=== PATIENT | male | born 1955 | race Caucasian/White ===

== ENCOUNTER 2016-12-31 09:01 | Inpatient (IN) | payer MEDICARE, MEDICAID ==
[~2016-12-31 09:01] MED LIST: AMBIEN10 M1 PO; AMLODIPINE BESY10 M1 PO; ASPIR-LOW81 M1 PO; ATIVAN0.5 M1 PO; BISCOLAX10 MG PR; CALCIUM ACETAT667 M2 PO; CLONIDINE HCL0.3 M1 PO; CLONIDINE1 EAC3 TD; CLOPIDOGREL75 M1 PO; COLACE100 M1 PO; CYMBALTA20 M1 PO; FINASTERIDE5 M2 PO; FLOMAX0.4 M1 PO; HYDRALAZINE HCL50 M1 PO; LAMOTRIGINE25 M3 PO; LASIX40 M1 PO; LEVEMIR100 UNITS/ SC; LIDOPATCH1 EAC1 TP; LISINOPRIL40 M1 PO; METAXALONE800 M1 PO; METOPROLOL TART25 M1 PO; MIRALAX17 G2 PO; MULTIVITAMIN; NEURONTIN300 M1 PO; NEURONTIN600 M1 PO; NORCO 5-325 TA1 EACH PO; NOVOLIN 70100 UNITS/ SC; NOVOLOG FL100 UNIT/2 SC; OMEPRAZOLE40 M2 PO; OXYCODONE HCL5 M1 PO; PROCEL PO; RENVELA800 M1 PO; RISPERIDONE0.5 M1 PO; SENNALAX S PO; SENSIPAR30 M1 PO; TRAZODONE HCL150 M1 PO; ULTRAM50 M1 PO; VENLAFAXINE PO; ZOFRAN ODT4 MG PO; ZOFRAN4 M2 PO
[2016-12-31 12:21] LABS: BASO % 0.3 % (0-2); EOS % 1.3 % (0-7); EOSINOPHIL ABSOLUTE COUNT 0.1 tho/cmm (0.0-0.7); HCT-HEMATOCRIT 28.1 % (36.0-53.5); HGB-HEMOGLOBIN 9.4 gm/dl (13.5-17.0); IMMATURE GRANULOCYTES ABSOLUTE 0.05 tho/cmm (0-0.03); IMMATURE GRANULOCYTES PERCENT 0.5 % (0-0.3); LYMPH % 7.4 % (20-45); LYMPH ABSOLUTE COUNT 0.8 tho/cmm (0.8-4.5); MCH (MEAN CORPUSCULAR HGB) 32.1 pg (28.0-32.0); MCHC MEAN CORPUSCULAR HGB CONC 33.5 % (32.0-36.0); MCV (MEAN CELL VOLUME) 95.9 fl (82.0-96.0); MEAN PLATELET VOLUME 9.4 cmc (9.4-12.4); MONOCYTE ABSOLUTE COUNT 0.9 tho/cmm (0.0-1.2); NEUTROPHIL ABSOLUTE COUNT 9.1 tho/cmm (1.6-8.0); NEUTROPHIL-AUTOMATED 9.1 tho/cmm (1.6-8.0); NEUTROPHILS % 82.5 % (40-80); PLATELET COUNT 276 tho/cmm (150-450); RED BLOOD COUNT 2.93 mil/cmm (4.40-5.70); RED CELL DISTRIBUTION WIDTH 16.2 % (12.4-16.4)
[2016-12-31 12:26] LABS: INR 1.3 INR (0.9-1.1); PROTHROMBIN TIME 15.1 SECONDS (9.0-13.6)
[2016-12-31 12:34] LABS: ANION GAP 19 mmol/L (0-20); BLOOD UREA NITROGEN 63 mg/dl (6-24); CARBON DIOXIDE-VENOUS 24 mmol/L (22-32); CHLORIDE 94 mmol/l (96-110); CREATININE 6.85 mg/dl (0.60-1.30); GLUCOSE 341 mg/dL (70-110); SODIUM 133 mmol/L (135-145); eGFR VALUE FOR BLACK 9 mL/Min
[2016-12-31 14:08] LABS: ALB/GLOB RATIO 0.4 (0.8-2.0); ALBUMIN 2.6 g/dl (3.5-5.0); ALKALINE PHOSPHATASE 205 U/L (33-138); ALT/SGPT 44 U/L (12-78); ANION GAP 19 mmol/L (0-20); AST/SGOT 24 U/L (10-40); BILIRUBIN,TOTAL 0.5 mg/dl (0.0-1.5); BLOOD UREA NITROGEN 64 mg/dl (6-24); CALCIUM 8.7 mg/dl (8.5-10.5); CARBON DIOXIDE-VENOUS 24 mmol/L (22-32); CHLORIDE 94 mmol/l (96-110); CREATININE 6.86 mg/dl (0.60-1.30); GLUCOSE 353 mg/dL (70-110); SODIUM 133 mmol/L (135-145); eGFR VALUE FOR BLACK 9 mL/Min
[2017-01-01 07:57] LABS: BASO % 0.2 % (0-2); EOS % 2.2 % (0-7); EOSINOPHIL ABSOLUTE COUNT 0.2 tho/cmm (0.0-0.7); HCT-HEMATOCRIT 26.4 % (36.0-53.5); HGB-HEMOGLOBIN 8.8 gm/dl (13.5-17.0); IMMATURE GRANULOCYTES ABSOLUTE 0.02 tho/cmm (0-0.03); IMMATURE GRANULOCYTES PERCENT 0.2 % (0-0.3); LYMPH % 8.9 % (20-45); LYMPH ABSOLUTE COUNT 0.9 tho/cmm (0.8-4.5); MCH (MEAN CORPUSCULAR HGB) 31.7 pg (28.0-32.0); MCHC MEAN CORPUSCULAR HGB CONC 33.3 % (32.0-36.0); MEAN PLATELET VOLUME 9.3 cmc (9.4-12.4); MONO % 7.8 % (0-12); MONOCYTE ABSOLUTE COUNT 0.7 tho/cmm (0.0-1.2); NEUTROPHIL ABSOLUTE COUNT 7.7 tho/cmm (1.6-8.0); NEUTROPHIL-AUTOMATED 7.7 tho/cmm (1.6-8.0); NEUTROPHILS % 80.7 % (40-80); PLATELET COUNT 275 tho/cmm (150-450); RED BLOOD COUNT 2.78 mil/cmm (4.40-5.70); RED CELL DISTRIBUTION WIDTH 15.6 % (12.4-16.4); WHITE BLOOD COUNT 9.5 tho/cmm (4.0-10.0)
[2017-01-01 08:09] LABS: ALBUMIN 2.3 g/dl (3.5-5.0); ANION GAP 21 mmol/L (0-20); BLOOD UREA NITROGEN 75 mg/dl (6-24); CALCIUM 8.8 mg/dl (8.5-10.5); CARBON DIOXIDE-VENOUS 22 mmol/L (22-32); CHLORIDE 95 mmol/l (96-110); CREATININE 8.39 mg/dl (0.60-1.30); GLUCOSE 206 mg/dL (70-110); PHOSPHOROUS 4.5 mg/dl (2.5-4.9); POTASSIUM 3.7 mmol/L (3.7-5.1); SODIUM 134 mmol/L (135-145); eGFR VALUE FOR BLACK 7 mL/Min
[2017-01-01 15:45] LABS: C-REACTIVE PROTEIN 24.5 mg/dl (0-0.9)
[2017-01-01 16:04] LABS: PROCALCITONIN 1.86 ng/ml (0.05-0.09)
[2017-01-02 07:47] LABS: BASO % 0.4 % (0-2); EOS % 2.7 % (0-7); EOSINOPHIL ABSOLUTE COUNT 0.2 tho/cmm (0.0-0.7); HCT-HEMATOCRIT 28.4 % (36.0-53.5); IMMATURE GRANULOCYTES ABSOLUTE 0.04 tho/cmm (0-0.03); IMMATURE GRANULOCYTES PERCENT 0.5 % (0-0.3); LYMPH % 12.2 % (20-45); MCH (MEAN CORPUSCULAR HGB) 30.6 pg (28.0-32.0); MCHC MEAN CORPUSCULAR HGB CONC 31.7 % (32.0-36.0); MCV (MEAN CELL VOLUME) 96.6 fl (82.0-96.0); MEAN PLATELET VOLUME 9.2 cmc (9.4-12.4); MONO % 9.3 % (0-12); MONOCYTE ABSOLUTE COUNT 0.8 tho/cmm (0.0-1.2); NEUTROPHIL ABSOLUTE COUNT 6.1 tho/cmm (1.6-8.0); NEUTROPHIL-AUTOMATED 6.1 tho/cmm (1.6-8.0); NEUTROPHILS % 74.9 % (40-80); PLATELET COUNT 319 tho/cmm (150-450); RED BLOOD COUNT 2.94 mil/cmm (4.40-5.70); RED CELL DISTRIBUTION WIDTH 16.1 % (12.4-16.4); WHITE BLOOD COUNT 8.2 tho/cmm (4.0-10.0)
[2017-01-02 08:04] LABS: ALBUMIN 2.4 g/dl (3.5-5.0); ANION GAP 13 mmol/L (0-20); BLOOD UREA NITROGEN 44 mg/dl (6-24); CALCIUM 8.8 mg/dl (8.5-10.5); CARBON DIOXIDE-VENOUS 28 mmol/L (22-32); CHLORIDE 100 mmol/l (96-110); GLUCOSE 130 mg/dL (70-110); PHOSPHOROUS 3.4 mg/dl (2.5-4.9); POTASSIUM 4.1 mmol/L (3.7-5.1); SODIUM 137 mmol/L (135-145)
[2017-01-02 08:07] LABS: CREATININE 5.74 mg/dl (0.60-1.30); eGFR VALUE FOR BLACK 11 mL/Min
[2017-01-02 08:24] LABS: PROCALCITONIN 2.98 ng/ml (0.05-0.09)
[2017-01-02] MEDS ORDERED: NORCO 10-325 T1 EACH PO (14:05)
[2017-01-03 05:59] LABS: BASO % 0.3 % (0-2); EOS % 2.3 % (0-7); EOSINOPHIL ABSOLUTE COUNT 0.2 tho/cmm (0.0-0.7); HCT-HEMATOCRIT 29.3 % (36.0-53.5); HGB-HEMOGLOBIN 9.4 gm/dl (13.5-17.0); IMMATURE GRANULOCYTES ABSOLUTE 0.03 tho/cmm (0-0.03); IMMATURE GRANULOCYTES PERCENT 0.3 % (0-0.3); LYMPH % 8.5 % (20-45); LYMPH ABSOLUTE COUNT 0.8 tho/cmm (0.8-4.5); MCH (MEAN CORPUSCULAR HGB) 31.2 pg (28.0-32.0); MCHC MEAN CORPUSCULAR HGB CONC 32.1 % (32.0-36.0); MCV (MEAN CELL VOLUME) 97.3 fl (82.0-96.0); MEAN PLATELET VOLUME 8.9 cmc (9.4-12.4); MONO % 9.1 % (0-12); MONOCYTE ABSOLUTE COUNT 0.8 tho/cmm (0.0-1.2); NEUTROPHIL ABSOLUTE COUNT 7.3 tho/cmm (1.6-8.0); NEUTROPHIL-AUTOMATED 7.3 tho/cmm (1.6-8.0); NEUTROPHILS % 79.5 % (40-80); PLATELET COUNT 338 tho/cmm (150-450); RED BLOOD COUNT 3.01 mil/cmm (4.40-5.70); RED CELL DISTRIBUTION WIDTH 16.4 % (12.4-16.4); WHITE BLOOD COUNT 9.2 tho/cmm (4.0-10.0)
[2017-01-03 06:29] LABS: ALBUMIN 2.4 g/dl (3.5-5.0); ANION GAP 17 mmol/L (0-20); BLOOD UREA NITROGEN 56 mg/dl (6-24); CARBON DIOXIDE-VENOUS 25 mmol/L (22-32); CHLORIDE 98 mmol/l (96-110); GLUCOSE 84 mg/dL (70-110); PHOSPHOROUS 4.5 mg/dl (2.5-4.9); POTASSIUM 4.3 mmol/L (3.7-5.1); SODIUM 136 mmol/L (135-145)
[2017-01-03 06:36] LABS: C-REACTIVE PROTEIN 18.8 mg/dl (0-0.9); CREATININE 7.54 mg/dl (0.60-1.30); eGFR VALUE FOR BLACK 8 mL/Min
[2017-01-03 06:56] LABS: PROCALCITONIN 2.39 ng/ml (0.05-0.09)
[2017-01-04 05:59] LABS: BASO % 0.4 % (0-2); EOS % 1.6 % (0-7); EOSINOPHIL ABSOLUTE COUNT 0.2 tho/cmm (0.0-0.7); HCT-HEMATOCRIT 28.5 % (36.0-53.5); HGB-HEMOGLOBIN 9.3 gm/dl (13.5-17.0); IMMATURE GRANULOCYTES ABSOLUTE 0.05 tho/cmm (0-0.03); IMMATURE GRANULOCYTES PERCENT 0.5 % (0-0.3); LYMPH % 7.3 % (20-45); LYMPH ABSOLUTE COUNT 0.8 tho/cmm (0.8-4.5); MCH (MEAN CORPUSCULAR HGB) 31.7 pg (28.0-32.0); MCHC MEAN CORPUSCULAR HGB CONC 32.6 % (32.0-36.0); MCV (MEAN CELL VOLUME) 97.3 fl (82.0-96.0); MONO % 7.6 % (0-12); MONOCYTE ABSOLUTE COUNT 0.8 tho/cmm (0.0-1.2); NEUTROPHIL ABSOLUTE COUNT 8.8 tho/cmm (1.6-8.0); NEUTROPHIL-AUTOMATED 8.8 tho/cmm (1.6-8.0); NEUTROPHILS % 82.6 % (40-80); PLATELET COUNT 355 tho/cmm (150-450); RED BLOOD COUNT 2.93 mil/cmm (4.40-5.70); RED CELL DISTRIBUTION WIDTH 16.1 % (12.4-16.4); WHITE BLOOD COUNT 10.6 tho/cmm (4.0-10.0)
[2017-01-04 06:58] LABS: ALBUMIN 2.3 g/dl (3.5-5.0); ANION GAP 19 mmol/L (0-20); BLOOD UREA NITROGEN 72 mg/dl (6-24); CALCIUM 8.7 mg/dl (8.5-10.5); CARBON DIOXIDE-VENOUS 25 mmol/L (22-32); CHLORIDE 96 mmol/l (96-110); CREATININE 9.32 mg/dl (0.60-1.30); GLUCOSE 112 mg/dL (70-110); SODIUM 135 mmol/L (135-145); eGFR VALUE FOR BLACK 6 mL/Min
[2017-01-04 07:08] LABS: C-REACTIVE PROTEIN 21.9 mg/dl (0-0.9)
[2017-01-05 05:10] LABS: BASO % 0.3 % (0-2); EOS % 1.9 % (0-7); EOSINOPHIL ABSOLUTE COUNT 0.2 tho/cmm (0.0-0.7); HCT-HEMATOCRIT 29.5 % (36.0-53.5); HGB-HEMOGLOBIN 9.2 gm/dl (13.5-17.0); IMMATURE GRANULOCYTES ABSOLUTE 0.05 tho/cmm (0-0.03); IMMATURE GRANULOCYTES PERCENT 0.6 % (0-0.3); LYMPH % 11.1 % (20-45); MCH (MEAN CORPUSCULAR HGB) 30.9 pg (28.0-32.0); MCHC MEAN CORPUSCULAR HGB CONC 31.2 % (32.0-36.0); MEAN PLATELET VOLUME 9.2 cmc (9.4-12.4); MONO % 8.4 % (0-12); MONOCYTE ABSOLUTE COUNT 0.8 tho/cmm (0.0-1.2); NEUTROPHIL ABSOLUTE COUNT 7.1 tho/cmm (1.6-8.0); NEUTROPHIL-AUTOMATED 7.1 tho/cmm (1.6-8.0); NEUTROPHILS % 77.7 % (40-80); PLATELET COUNT 336 tho/cmm (150-450); RED BLOOD COUNT 2.98 mil/cmm (4.40-5.70); RED CELL DISTRIBUTION WIDTH 16.2 % (12.4-16.4); WHITE BLOOD COUNT 9.1 tho/cmm (4.0-10.0)
[2017-01-05 05:40] LABS: C-REACTIVE PROTEIN 20.8 mg/dl (0-0.9)
[2017-01-06 05:54] LABS: BASO % 0.6 % (0-2); BASO ABSOLUTE COUNT 0.1 tho/cmm (0.0-0.2); EOS % 2.4 % (0-7); EOSINOPHIL ABSOLUTE COUNT 0.2 tho/cmm (0.0-0.7); HCT-HEMATOCRIT 26.8 % (36.0-53.5); HGB-HEMOGLOBIN 8.5 gm/dl (13.5-17.0); IMMATURE GRANULOCYTES ABSOLUTE 0.05 tho/cmm (0-0.03); IMMATURE GRANULOCYTES PERCENT 0.5 % (0-0.3); LYMPH % 11.3 % (20-45); LYMPH ABSOLUTE COUNT 1.1 tho/cmm (0.8-4.5); MCHC MEAN CORPUSCULAR HGB CONC 31.7 % (32.0-36.0); MCV (MEAN CELL VOLUME) 97.8 fl (82.0-96.0); MONOCYTE ABSOLUTE COUNT 0.9 tho/cmm (0.0-1.2); NEUTROPHIL ABSOLUTE COUNT 7.1 tho/cmm (1.6-8.0); NEUTROPHIL-AUTOMATED 7.1 tho/cmm (1.6-8.0); NEUTROPHILS % 75.2 % (40-80); PLATELET COUNT 317 tho/cmm (150-450); RED BLOOD COUNT 2.74 mil/cmm (4.40-5.70); RED CELL DISTRIBUTION WIDTH 16.2 % (12.4-16.4); WHITE BLOOD COUNT 9.4 tho/cmm (4.0-10.0)
[2017-01-06 06:08] LABS: ALBUMIN 2.3 g/dl (3.5-5.0); ANION GAP 17 mmol/L (0-20); BLOOD UREA NITROGEN 61 mg/dl (6-24); CALCIUM 8.5 mg/dl (8.5-10.5); CARBON DIOXIDE-VENOUS 25 mmol/L (22-32); CHLORIDE 97 mmol/l (96-110); CREATININE 8.42 mg/dl (0.60-1.30); GLUCOSE 85 mg/dL (70-110); PHOSPHOROUS 6.2 mg/dl (2.5-4.9); SODIUM 134 mmol/L (135-145); eGFR VALUE FOR BLACK 7 mL/Min
[2017-01-06 06:20] LABS: C-REACTIVE PROTEIN 21.4 mg/dl (0-0.9)
[2017-01-07 05:42] LABS: BASO % 0.5 % (0-2); EOS % 1.9 % (0-7); EOSINOPHIL ABSOLUTE COUNT 0.2 tho/cmm (0.0-0.7); HCT-HEMATOCRIT 26.9 % (36.0-53.5); HGB-HEMOGLOBIN 8.6 gm/dl (13.5-17.0); IMMATURE GRANULOCYTES ABSOLUTE 0.04 tho/cmm (0-0.03); IMMATURE GRANULOCYTES PERCENT 0.5 % (0-0.3); LYMPH % 10.6 % (20-45); LYMPH ABSOLUTE COUNT 0.9 tho/cmm (0.8-4.5); MCH (MEAN CORPUSCULAR HGB) 31.4 pg (28.0-32.0); MCV (MEAN CELL VOLUME) 98.2 fl (82.0-96.0); MEAN PLATELET VOLUME 8.8 cmc (9.4-12.4); NEUTROPHIL ABSOLUTE COUNT 6.4 tho/cmm (1.6-8.0); NEUTROPHIL-AUTOMATED 6.4 tho/cmm (1.6-8.0); NEUTROPHILS % 74.5 % (40-80); PLATELET COUNT 305 tho/cmm (150-450); RED BLOOD COUNT 2.74 mil/cmm (4.40-5.70); WHITE BLOOD COUNT 8.5 tho/cmm (4.0-10.0)
[2017-01-07 06:26] LABS: PROCALCITONIN 2.64 ng/ml (0.05-0.09)
[2017-01-07 06:47] LABS: C-REACTIVE PROTEIN 22.4 mg/dl (0-0.9)
[2017-01-07 08:35] LABS: ABG CO2 ARTERIAL 27 mmol/L (21-27); ARTERIAL BLD GAS O2 SATURATION 90 % (95-98); ARTERIAL BLOOD GAS PCO2 46 mmHg (32-45); ARTERIAL PO2 59 mmHg (70-100); BICARBONATE 26 mmol/L (21-28); BLOOD GAS BASE EXCESS 1 mM/L (-/+3); PH 7.37 Units (7.35-7.45)
--- NOTE | 2017-01-07 15:10 | NUR ---
ASKED PATIENT TO ROLL IN ORDER TO GET ON THE TUB CART. PATIENT SHOUTED AT NURSES AND TUB NURSE THAT HE DIDN'T WANT TO GO AND THAT HE WOULD "SMACK" ANYONE WHO TRIED. EDUCATED PATIENT ON REASONS WHY PATIENTS ARE ASKED TO GO TO TUB. PATIENT CONTINUED TO REFUSE. PATIENT ALSO REFUSED BED BATH. PATIENT DID AGREE TO DRESSING CHANGE.
[2017-01-08 06:20] LABS: ALBUMIN 2.6 g/dl (3.5-5.0); ANION GAP 20 mmol/L (0-20); BLOOD UREA NITROGEN 52 mg/dl (6-24); CALCIUM 8.7 mg/dl (8.5-10.5); CARBON DIOXIDE-VENOUS 23 mmol/L (22-32); CHLORIDE 97 mmol/l (96-110); CREATININE 7.79 mg/dl (0.60-1.30); GLUCOSE 156 mg/dL (70-110); PHOSPHOROUS 4.9 mg/dl (2.5-4.9); POTASSIUM 4.7 mmol/L (3.7-5.1); SODIUM 135 mmol/L (135-145); eGFR VALUE FOR BLACK 8 mL/Min
[2017-01-10 06:24] LABS: BASO % 0.5 % (0-2); BASO ABSOLUTE COUNT 0.1 tho/cmm (0.0-0.2); EOS % 1.6 % (0-7); EOSINOPHIL ABSOLUTE COUNT 0.2 tho/cmm (0.0-0.7); HCT-HEMATOCRIT 24.6 % (36.0-53.5); HGB-HEMOGLOBIN 7.8 gm/dl (13.5-17.0); IMMATURE GRANULOCYTES ABSOLUTE 0.06 tho/cmm (0-0.03); IMMATURE GRANULOCYTES PERCENT 0.6 % (0-0.3); LYMPH % 8.1 % (20-45); LYMPH ABSOLUTE COUNT 0.9 tho/cmm (0.8-4.5); MCHC MEAN CORPUSCULAR HGB CONC 31.7 % (32.0-36.0); MCV (MEAN CELL VOLUME) 97.6 fl (82.0-96.0); MEAN PLATELET VOLUME 9.4 cmc (9.4-12.4); MONOCYTE ABSOLUTE COUNT 0.9 tho/cmm (0.0-1.2); NEUTROPHIL ABSOLUTE COUNT 8.6 tho/cmm (1.6-8.0); NEUTROPHIL-AUTOMATED 8.6 tho/cmm (1.6-8.0); NEUTROPHILS % 81.2 % (40-80); PLATELET COUNT 298 tho/cmm (150-450); RED BLOOD COUNT 2.52 mil/cmm (4.40-5.70); RED CELL DISTRIBUTION WIDTH 15.7 % (12.4-16.4); WHITE BLOOD COUNT 10.6 tho/cmm (4.0-10.0)
[2017-01-10 06:30] LABS: ALBUMIN 2.5 g/dl (3.5-5.0); ANION GAP 16 mmol/L (0-20); BLOOD UREA NITROGEN 47 mg/dl (6-24); CALCIUM 8.4 mg/dl (8.5-10.5); CARBON DIOXIDE-VENOUS 26 mmol/L (22-32); CHLORIDE 97 mmol/l (96-110); CREATININE 7.27 mg/dl (0.60-1.30); PHOSPHOROUS 4.9 mg/dl (2.5-4.9); POTASSIUM 4.2 mmol/L (3.7-5.1); SODIUM 135 mmol/L (135-145); eGFR VALUE FOR BLACK 9 mL/Min
[2017-01-10 07:00] LABS: C-REACTIVE PROTEIN 22.1 mg/dl (0-0.9); GLUCOSE 252 mg/dL (70-110)
[2017-01-11 05:46] LABS: BASO % 0.6 % (0-2); BASO ABSOLUTE COUNT 0.1 tho/cmm (0.0-0.2); EOS % 1.9 % (0-7); EOSINOPHIL ABSOLUTE COUNT 0.2 tho/cmm (0.0-0.7); HCT-HEMATOCRIT 24.5 % (36.0-53.5); HGB-HEMOGLOBIN 7.9 gm/dl (13.5-17.0); IMMATURE GRANULOCYTES ABSOLUTE 0.03 tho/cmm (0-0.03); IMMATURE GRANULOCYTES PERCENT 0.3 % (0-0.3); LYMPH % 9.3 % (20-45); LYMPH ABSOLUTE COUNT 0.8 tho/cmm (0.8-4.5); MCH (MEAN CORPUSCULAR HGB) 31.1 pg (28.0-32.0); MCHC MEAN CORPUSCULAR HGB CONC 32.2 % (32.0-36.0); MCV (MEAN CELL VOLUME) 96.5 fl (82.0-96.0); MEAN PLATELET VOLUME 9.3 cmc (9.4-12.4); MONO % 10.2 % (0-12); MONOCYTE ABSOLUTE COUNT 0.9 tho/cmm (0.0-1.2); NEUTROPHIL ABSOLUTE COUNT 6.8 tho/cmm (1.6-8.0); NEUTROPHIL-AUTOMATED 6.8 tho/cmm (1.6-8.0); NEUTROPHILS % 77.7 % (40-80); PLATELET COUNT 310 tho/cmm (150-450); RED BLOOD COUNT 2.54 mil/cmm (4.40-5.70); RED CELL DISTRIBUTION WIDTH 15.5 % (12.4-16.4); WHITE BLOOD COUNT 8.8 tho/cmm (4.0-10.0)
[2017-01-11 05:58] LABS: ALBUMIN 2.2 g/dl (3.5-5.0); ANION GAP 18 mmol/L (0-20); BLOOD UREA NITROGEN 55 mg/dl (6-24); CALCIUM 8.1 mg/dl (8.5-10.5); CARBON DIOXIDE-VENOUS 25 mmol/L (22-32); CHLORIDE 94 mmol/l (96-110); CREATININE 8.43 mg/dl (0.60-1.30); GLUCOSE 207 mg/dL (70-110); PHOSPHOROUS 4.9 mg/dl (2.5-4.9); POTASSIUM 4.5 mmol/L (3.7-5.1); SODIUM 132 mmol/L (135-145); eGFR VALUE FOR BLACK 7 mL/Min
[2017-01-11 18:42] LABS: BASO % 0.4 % (0-2); EOS % 1.3 % (0-7); EOSINOPHIL ABSOLUTE COUNT 0.1 tho/cmm (0.0-0.7); HCT-HEMATOCRIT 29.8 % (36.0-53.5); HGB-HEMOGLOBIN 9.7 gm/dl (13.5-17.0); IMMATURE GRANULOCYTES ABSOLUTE 0.05 tho/cmm (0-0.03); IMMATURE GRANULOCYTES PERCENT 0.6 % (0-0.3); LYMPH % 6.1 % (20-45); LYMPH ABSOLUTE COUNT 0.5 tho/cmm (0.8-4.5); MCH (MEAN CORPUSCULAR HGB) 30.8 pg (28.0-32.0); MCHC MEAN CORPUSCULAR HGB CONC 32.6 % (32.0-36.0); MCV (MEAN CELL VOLUME) 94.6 fl (82.0-96.0); MEAN PLATELET VOLUME 9.2 cmc (9.4-12.4); MONOCYTE ABSOLUTE COUNT 0.6 tho/cmm (0.0-1.2); NEUTROPHIL ABSOLUTE COUNT 7.6 tho/cmm (1.6-8.0); NEUTROPHIL-AUTOMATED 7.6 tho/cmm (1.6-8.0); NEUTROPHILS % 84.6 % (40-80); PLATELET COUNT 285 tho/cmm (150-450); RED BLOOD COUNT 3.15 mil/cmm (4.40-5.70); RED CELL DISTRIBUTION WIDTH 16.4 % (12.4-16.4); WHITE BLOOD COUNT 8.9 tho/cmm (4.0-10.0)
--- NOTE | 2017-01-11 18:44 | NUR ---
Notified [facility] and spoke to the supervisor spinning, Luis M. Clarified the [facility] order with Dr. Sullivan and notified them of this order along with refaxing the discharge order to them. Family also came back to pick up man some clothes that were forgetten in his room.
[2017-01-11 18:56] LABS: ANION GAP 16 mmol/L (0-20); CALCIUM 8.4 mg/dl (8.5-10.5); CARBON DIOXIDE-VENOUS 25 mmol/L (22-32); CHLORIDE 97 mmol/l (96-110); GLUCOSE 209 mg/dL (70-110); POTASSIUM 4.1 mmol/L (3.7-5.1); SODIUM 134 mmol/L (135-145); eGFR VALUE FOR BLACK 14 mL/Min
[2017-01-11 18:57] LABS: BLOOD UREA NITROGEN 26 mg/dl (6-24); CREATININE 4.99 mg/dl (0.60-1.30)
[2017-01-12 05:46] LABS: BASO % 0.5 % (0-2); BASO ABSOLUTE COUNT 0.1 tho/cmm (0.0-0.2); EOS % 1.1 % (0-7); EOSINOPHIL ABSOLUTE COUNT 0.1 tho/cmm (0.0-0.7); HCT-HEMATOCRIT 28.4 % (36.0-53.5); HGB-HEMOGLOBIN 9.1 gm/dl (13.5-17.0); IMMATURE GRANULOCYTES ABSOLUTE 0.08 tho/cmm (0-0.03); IMMATURE GRANULOCYTES PERCENT 0.8 % (0-0.3); LYMPH % 6.9 % (20-45); LYMPH ABSOLUTE COUNT 0.7 tho/cmm (0.8-4.5); MCH (MEAN CORPUSCULAR HGB) 30.1 pg (28.0-32.0); MEAN PLATELET VOLUME 9.2 cmc (9.4-12.4); MONOCYTE ABSOLUTE COUNT 0.9 tho/cmm (0.0-1.2); NEUTROPHIL ABSOLUTE COUNT 7.8 tho/cmm (1.6-8.0); NEUTROPHIL-AUTOMATED 7.8 tho/cmm (1.6-8.0); NEUTROPHILS % 81.7 % (40-80); PLATELET COUNT 294 tho/cmm (150-450); RED BLOOD COUNT 3.02 mil/cmm (4.40-5.70); RED CELL DISTRIBUTION WIDTH 16.4 % (12.4-16.4); WHITE BLOOD COUNT 9.6 tho/cmm (4.0-10.0)
[2017-01-12 05:49] LABS: ALBUMIN 2.3 g/dl (3.5-5.0); ANION GAP 18 mmol/L (0-20); BLOOD UREA NITROGEN 32 mg/dl (6-24); CALCIUM 8.2 mg/dl (8.5-10.5); CARBON DIOXIDE-VENOUS 24 mmol/L (22-32); CHLORIDE 95 mmol/l (96-110); CREATININE 5.84 mg/dl (0.60-1.30); GLUCOSE 210 mg/dL (70-110); PHOSPHOROUS 4.4 mg/dl (2.5-4.9); SODIUM 132 mmol/L (135-145); eGFR VALUE FOR BLACK 11 mL/Min
[2017-01-13 07:35] LABS: BASO % 0.4 % (0-2); EOS % 1.1 % (0-7); EOSINOPHIL ABSOLUTE COUNT 0.1 tho/cmm (0.0-0.7); HCT-HEMATOCRIT 27.8 % (36.0-53.5); IMMATURE GRANULOCYTES ABSOLUTE 0.06 tho/cmm (0-0.03); IMMATURE GRANULOCYTES PERCENT 0.6 % (0-0.3); LYMPH % 8.7 % (20-45); LYMPH ABSOLUTE COUNT 0.9 tho/cmm (0.8-4.5); MCH (MEAN CORPUSCULAR HGB) 30.2 pg (28.0-32.0); MCHC MEAN CORPUSCULAR HGB CONC 32.4 % (32.0-36.0); MCV (MEAN CELL VOLUME) 93.3 fl (82.0-96.0); MEAN PLATELET VOLUME 8.8 cmc (9.4-12.4); MONO % 10.4 % (0-12); MONOCYTE ABSOLUTE COUNT 1.1 tho/cmm (0.0-1.2); NEUTROPHILS % 78.8 % (40-80); PLATELET COUNT 305 tho/cmm (150-450); RED BLOOD COUNT 2.98 mil/cmm (4.40-5.70); WHITE BLOOD COUNT 10.2 tho/cmm (4.0-10.0)
[2017-01-13 07:47] LABS: ALBUMIN 2.3 g/dl (3.5-5.0); ANION GAP 18 mmol/L (0-20); BLOOD UREA NITROGEN 44 mg/dl (6-24); CALCIUM 8.4 mg/dl (8.5-10.5); CARBON DIOXIDE-VENOUS 24 mmol/L (22-32); CHLORIDE 94 mmol/l (96-110); GLUCOSE 268 mg/dL (70-110); POTASSIUM 5.1 mmol/L (3.7-5.1); SODIUM 131 mmol/L (135-145)
[2017-01-13 08:29] LABS: CREATININE 7.82 mg/dl (0.60-1.30); eGFR VALUE FOR BLACK 8 mL/Min
--- NOTE | 2017-01-13 18:45 | NUR ---
NOTIFIED PHARMACEY OF [facility]- OK TO GIVE DOSE THIS EVENING- REPORTED TO TRACE IN RX @ [id number].
[2017-02-11] MEDS ORDERED: NORVASC10 M2 PO (11:56)
[2017-02-11] MEDS ORDERED: ACID CONTROL150 M2 PO (11:58)
[2017-02-11] MEDS ORDERED: RENVELA800 M1 PO (11:59)
[2017-02-11] MEDS ORDERED: COLACE100 M1 PO (12:00)
[2017-02-11] MEDS ORDERED: CYCLOBENZAPRINE5 M1 PO (12:02)
[2017-02-11] MEDS ORDERED: ZOFRAN4 M2 PO (12:03)
[2017-03-11] MEDS ORDERED: NOVOLOG FL100 UNIT/2 SC (12:21)
[2017-06-03] MEDS ORDERED: NOVOLOG100 UNITS/ SC ×2 (08:24)
[2017-06-03] MEDS ORDERED: HYDRALAZINE HCL25 M1 PO (08:31)
[2017-06-10] MEDS ORDERED: MUCINEX600 M1 PO (10:57)
== END 2017-01-14 12:00 | DRG 239 ==
LOC: WCC 09:01 → BURN 11:03
PROVIDERS: Hospitalist; Internal Medicine; Internal Medicine Infectious Disease; Internal Medicine Nephrology; Nurse Practitioner; Surgery; ADMIT Surgery
PROC: 02HV33Z Insertion of Infusion Device into Superior Vena Cava, Percutaneous Approach (ICD-10-PCS; 2016-12-31)
PROC: 0JBQ0ZZ Excision of Right Foot Subcutaneous Tissue and Fascia, Open Approach (ICD-10-PCS; 2017-01-01)
PROC: 0HRNXK4 Replacement of Left Foot Skin with Nonautologous Tissue Substitute, Partial Thickness, External Approach (ICD-10-PCS; 2017-01-01)
PROC: 0QBM0ZZ Excision of Left Tarsal, Open Approach (ICD-10-PCS; 2017-01-01)
PROC: 5A1D60Z (ICD-10-PCS; 2017-01-01)
PROC: 0Y6D0Z3 Detachment at Left Upper Leg, Low, Open Approach (ICD-10-PCS; principal; 2017-01-11)
DX: E11.52 Type 2 diabetes mellitus with diabetic peripheral angiopathy with gangrene (principal); G93.40 Encephalopathy, unspecified; I12.0 Hypertensive chronic kidney disease with stage 5 chronic kidney disease or end stage renal disease; N18.6 End stage renal disease; I47.1 Supraventricular tachycardia; E11.21 Type 2 diabetes mellitus with diabetic nephropathy; L03.116 Cellulitis of left lower limb; L97.429 Non-pressure chronic ulcer of left heel and midfoot with unspecified severity; L97.419 Non-pressure chronic ulcer of right heel and midfoot with unspecified severity; I48.92 Unspecified atrial flutter; E11.621 Type 2 diabetes mellitus with foot ulcer; E11.40 Type 2 diabetes mellitus with diabetic neuropathy, unspecified; Z79.4 Long term (current) use of insulin; E11.22 Type 2 diabetes mellitus with diabetic chronic kidney disease; Z99.2 Dependence on renal dialysis; G89.4 Chronic pain syndrome; Z85.46 Personal history of malignant neoplasm of prostate; K21.9 Gastro-esophageal reflux disease without esophagitis; K22.70 Barrett's esophagus without dysplasia; Z79.82 Long term (current) use of aspirin; F32.9 Major depressive disorder, single episode, unspecified; D63.1 Anemia in chronic kidney disease; E11.65 Type 2 diabetes mellitus with hyperglycemia; G47.33 Obstructive sleep apnea (adult) (pediatric); B95.2 Enterococcus as the cause of diseases classified elsewhere; B95.61 Methicillin susceptible Staphylococcus aureus infection as the cause of diseases classified elsewhere; I87.2 Venous insufficiency (chronic) (peripheral); F41.9 Anxiety disorder, unspecified; E66.9 Obesity, unspecified; Z68.32 Body mass index [BMI] 32.0-32.9, adult
CPT/HCPCS: A9500; C1751; G0463; J0171; J0885; J1335; J1815; J2060; J2250; J2310; J2405; J2543; J2785; J3370; J7030; J7050; J7999; L4396; P9016; P9045; P9047; Q4100

== ENCOUNTER 2017-03-08 14:47 | Emergency (ER) | payer MEDICARE ==
[~2017-03-08 14:47] MED LIST changes: +ACID CONTROL150 M2 PO; +CYCLOBENZAPRINE5 M1 PO; +NORCO 10-325 T1 EACH PO; +NORVASC10 M2 PO
[2017-03-08 15:31] LABS: BASO % 1.3 % (0-2); BASO ABSOLUTE COUNT 0.1 tho/cmm (0.0-0.2); EOS % 5.8 % (0-7); EOSINOPHIL ABSOLUTE COUNT 0.3 tho/cmm (0.0-0.7); HCT-HEMATOCRIT 39.1 % (36.0-53.5); HGB-HEMOGLOBIN 12.7 gm/dl (13.5-17.0); LYMPH % 21.2 % (20-45); LYMPH ABSOLUTE COUNT 1.1 tho/cmm (0.8-4.5); MCH (MEAN CORPUSCULAR HGB) 30.4 pg (28.0-32.0); MCHC MEAN CORPUSCULAR HGB CONC 32.5 % (32.0-36.0); MCV (MEAN CELL VOLUME) 93.5 fl (82.0-96.0); MEAN PLATELET VOLUME 9.3 cmc (9.4-12.4); MONO % 13.9 % (0-12); MONOCYTE ABSOLUTE COUNT 0.7 tho/cmm (0.0-1.2); NEUTROPHIL ABSOLUTE COUNT 3.1 tho/cmm (1.6-8.0); NEUTROPHIL-AUTOMATED 3.1 tho/cmm (1.6-8.0); NEUTROPHILS % 57.8 % (40-80); PLATELET COUNT 174 tho/cmm (150-450); RED BLOOD COUNT 4.18 mil/cmm (4.40-5.70); RED CELL DISTRIBUTION WIDTH 17.1 % (12.4-16.4); WHITE BLOOD COUNT 5.3 tho/cmm (4.0-10.0)
[2017-03-08 15:42] LABS: ANION GAP 16 mmol/L (0-20); BLOOD UREA NITROGEN 37 mg/dl (6-24); CALCIUM 8.3 mg/dl (8.5-10.5); CARBON DIOXIDE-VENOUS 30 mmol/L (22-32); CHLORIDE 96 mmol/l (96-110); CREATININE 4.63 mg/dl (0.60-1.30); GLUCOSE 122 mg/dL (70-110); MAGNESIUM 2.2 mg/dl (1.8-2.6); POTASSIUM 4.3 mmol/L (3.7-5.1); SODIUM 138 mmol/L (135-145); eGFR VALUE FOR BLACK 15 mL/Min
[2017-03-08] MEDS ORDERED: GLUCAGON EMERGEN1 MG IM (16:08)
[2017-03-08] MEDS ORDERED: GLUCOSE4 GM PO (16:08)
[2017-03-08] MEDS ORDERED: LEVEMIR FL100 UNIT/2 SC (16:10)
[2017-03-08] MEDS ORDERED: AMITRIPTYLINE H25 M1 PO (16:20)
[2017-03-08] MEDS ORDERED: NORVASC10 M2 PO (16:20)
[2017-03-08] MEDS ORDERED: ACIDOPHILUS1 EAC7 PO (16:20)
[2017-03-08] MEDS ORDERED: BAYER CHEWABLE81 M2 PO (16:21)
[2017-03-08] MEDS ORDERED: CYCLOBENZAPRINE5 M1 PO (16:21)
[2017-03-08] MEDS ORDERED: DIALYSIS IV (16:23)
[2017-03-08] MEDS ORDERED: HEPARIN SO5000 UNIT1 IV (16:24)
[2017-03-08] MEDS ORDERED: HEPARIN SO1000 UNIT2 IV (16:25)
[2017-03-08] MEDS ORDERED: HEPARIN IV (16:26)
[2017-03-08] MEDS ORDERED: FERRLECIT62.5 MG/5 IV (16:31)
[2017-03-08] MEDS ORDERED: ARANESP100 MCG/0. IV (16:32)
[2017-03-08] MEDS ORDERED: VITAMIN D250000 UNI1 PO (16:32)
[2017-03-08] MEDS ORDERED: CYMBALTA20 M1 PO (16:33)
[2017-03-08] MEDS ORDERED: NEURONTIN100 M1 PO (16:33)
[2017-03-08] MEDS ORDERED: NEURONTIN400 M1 PO (16:34)
[2017-03-08] MEDS ORDERED: NEURONTIN300 M1 PO (16:34)
[2017-03-08] MEDS ORDERED: SKELAXIN800 M3 PO (16:34)
[2017-03-08] MEDS ORDERED: METOPROLOL TART25 M1 PO (16:35)
[2017-03-08] MEDS ORDERED: TAB-A-VITE-MIN1 EACH PO (16:35)
[2017-03-08] MEDS ORDERED: MIRALAX17 G2 PO (16:36)
[2017-03-08] MEDS ORDERED: OMEPRAZOLE20 M4 PO (16:36)
[2017-03-08] MEDS ORDERED: SENNA PLUS TAB1 EAC1 PO (16:37)
[2017-03-08] MEDS ORDERED: RENVELA800 M1 PO ×2 (16:37→16:44)
[2017-03-08] MEDS ORDERED: PROSTAT PO (16:37)
[2017-03-08] MEDS ORDERED: ZANTAC150 M1 PO (16:37)
[2017-03-08] MEDS ORDERED: SENSIPAR30 M1 PO (16:38)
[2017-03-08] MEDS ORDERED: TYLENOL325 M2 PO ×2 (16:38→16:39)
[2017-03-08] MEDS ORDERED: COLACE100 M1 PO (16:38)
[2017-03-08] MEDS ORDERED: TRAZODONE HCL50 M1 PO (16:38)
[2017-03-08] MEDS ORDERED: BISCOLAX10 MG PR (16:39)
[2017-03-08] MEDS ORDERED: CATAPRES0.1 M1 PO (16:40)
[2017-03-08] MEDS ORDERED: EXCEDRIN EXTRA1 EAC4 PO (16:41)
[2017-03-08] MEDS ORDERED: FLEET ENEMA133 ML PR (16:41)
[2017-03-08] MEDS ORDERED: NORCO 5-325 TA1 EACH PO ×2 (16:42→16:43)
[2017-03-08] MEDS ORDERED: HYDRALAZINE HCL25 M1 PO (16:42)
[2017-03-08] MEDS ORDERED: ADULT GLYCERIN1 EACH PR (16:42)
[2017-03-08] MEDS ORDERED: [UNRECOGNIZED DRUG - OTHER] (16:43)
[2017-03-08] MEDS ORDERED: ZOFRAN ODT4 MG PO (16:44)
[2017-03-08] MEDS ORDERED: BACITRACIN28.4 G2 TOP (16:45)
[2017-03-08] MEDS ORDERED: TRIPLE ANTIBIO1 EAC1 TOP (16:46)
[2017-03-08] MEDS ORDERED: ANTI-FUNGAL CR113 GM TOP (16:46)
[2017-03-08] MEDS ORDERED: VENELEX OINTMEN60 GM TOP ×2 (16:47)
[2017-03-11] MEDS ORDERED: NOVOLOG FL100 UNIT/2 SC (12:21)
[2017-06-03] MEDS ORDERED: NOVOLOG100 UNITS/ SC ×2 (08:24)
[2017-06-03] MEDS ORDERED: HYDRALAZINE HCL25 M1 PO (08:31)
[2017-06-10] MEDS ORDERED: MUCINEX600 M1 PO (10:57)
== END 2017-03-08 18:17 | disposition other institution (70) ==
LOC: EDMED 14:47
PROVIDERS: Emergency Medicine
DX: R41.82 Altered mental status, unspecified (principal); E11.22 Type 2 diabetes mellitus with diabetic chronic kidney disease; I12.0 Hypertensive chronic kidney disease with stage 5 chronic kidney disease or end stage renal disease; N18.6 End stage renal disease

== ENCOUNTER 2017-03-16 11:08 | Inpatient (IN) | payer MEDICARE, OTHER ==
[~2017-03-16 11:08] MED LIST changes: +ACIDOPHILUS1 EAC7 PO; +ADULT GLYCERIN1 EACH PR; +AMITRIPTYLINE H25 M1 PO; +ANTI-FUNGAL CR113 GM TOP; +ARANESP100 MCG/0. IV; +BACITRACIN28.4 G2 TOP; +BAYER CHEWABLE81 M2 PO; +CATAPRES0.1 M1 PO; +DIALYSIS IV; +EXCEDRIN EXTRA1 EAC4 PO; +FERRLECIT62.5 MG/5 IV; +FLEET ENEMA133 ML PR; +GLUCAGON EMERGEN1 MG IM; +GLUCOSE4 GM PO; +HEPARIN IV; +HEPARIN SO1000 UNIT2 IV; +HEPARIN SO5000 UNIT1 IV; +HYDRALAZINE HCL25 M1 PO; +LEVEMIR FL100 UNIT/2 SC; +NEURONTIN100 M1 PO; +NEURONTIN400 M1 PO; +OMEPRAZOLE20 M4 PO; +PROSTAT PO; +SENNA PLUS TAB1 EAC1 PO; +SKELAXIN800 M3 PO; +TAB-A-VITE-MIN1 EACH PO; +TRAZODONE HCL50 M1 PO; +TRIPLE ANTIBIO1 EAC1 TOP; +TYLENOL325 M2 PO; +VENELEX OINTMEN60 GM TOP; +VITAMIN D250000 UNI1 PO; +ZANTAC150 M1 PO; +[UNRECOGNIZED DRUG - OTHER]
[2017-03-16] MEDS ORDERED: GLUCAGON EMERGEN1 MG IM/SC (11:24)
[2017-03-16] MEDS ORDERED: GLUCOSE4 GM PO (11:25)
[2017-03-16] MEDS ORDERED: LEVEMIR FL100 UNIT/2 SC (11:25)
[2017-03-16] MEDS ORDERED: NOVOLOG FL100 UNIT/2 SC ×2 (11:28→11:30)
[2017-03-16] MEDS ORDERED: HEMODIALYSIS (11:30)
[2017-03-16] MEDS ORDERED: PROSTAT PO (11:31)
[2017-03-16] MEDS ORDERED: NORVASC10 M2 PO (11:31)
[2017-03-16] MEDS ORDERED: ACIDOPHILUS1 EAC3 PO (11:31)
[2017-03-16] MEDS ORDERED: ASPIRIN81 M1 PO (11:31)
[2017-03-16] MEDS ORDERED: SKELAXIN800 M3 PO (11:32)
[2017-03-16] MEDS ORDERED: NEURONTIN100 M1 PO ×2 (11:32→11:37)
[2017-03-16] MEDS ORDERED: CYMBALTA20 M1 PO (11:32)
[2017-03-16] MEDS ORDERED: METOPROLOL TART25 M1 PO (11:33)
[2017-03-16] MEDS ORDERED: OMEPRAZOLE20 M4 PO (11:33)
[2017-03-16] MEDS ORDERED: MULTIVITAMINS1 EAC5 PO (11:33)
[2017-03-16] MEDS ORDERED: POLYETHYLENE GL17 G1 PO (11:34)
[2017-03-16] MEDS ORDERED: RANITIDINE HCL150 M2 PO (11:34)
[2017-03-16] MEDS ORDERED: SENNA PLUS TAB1 EAC1 PO (11:35)
[2017-03-16] MEDS ORDERED: RENVELA800 M1 PO ×2 (11:35→11:42)
[2017-03-16] MEDS ORDERED: SENSIPAR30 M1 PO (11:36)
[2017-03-16] MEDS ORDERED: CYCLOBENZAPRINE5 M1 PO (11:36)
[2017-03-16] MEDS ORDERED: STOOL SOFTENER100 M3 PO (11:36)
[2017-03-16] MEDS ORDERED: AMITRIPTYLINE H25 M1 PO (11:36)
[2017-03-16] MEDS ORDERED: TRAZODONE HCL50 M1 PO (11:36)
[2017-03-16] MEDS ORDERED: TYLENOL325 M2 PO (11:37)
[2017-03-16] MEDS ORDERED: CATAPRES0.1 M1 PO (11:38)
[2017-03-16] MEDS ORDERED: BISCOLAX10 MG PR (11:38)
[2017-03-16] MEDS ORDERED: ADULT GLYCERIN1 EACH PR (11:39)
[2017-03-16] MEDS ORDERED: FLEET ENEMA133 ML PR (11:39)
[2017-03-16] MEDS ORDERED: NORCO 5-325 TA1 EACH PO (11:40)
[2017-03-16] MEDS ORDERED: HYDRALAZINE HCL25 M1 PO (11:40)
[2017-03-16] MEDS ORDERED: MILK OF MAGNESIA PO (11:41)
[2017-03-16] MEDS ORDERED: [UNRECOGNIZED DRUG - OTHER] (11:41)
[2017-03-16] MEDS ORDERED: ONDANSETRON ODT4 M1 SL (11:42)
[2017-03-16] MEDS ORDERED: EXCEDRIN EXTRA1 EAC4 PO (11:43)
[2017-03-16] MEDS ORDERED: VENELEX OINTMEN60 GM TP ×2 (11:44→11:45)
[2017-03-16] MEDS ORDERED: ANTIFUNGAL CREA14 G1 TP (11:44)
[2017-03-16] MEDS ORDERED: TRIPLE ANTIBIO1 EACH TP (11:46)
[2017-03-16 12:47] LABS: BASO % 0.5 % (0-2); EOS % 2.1 % (0-7); EOSINOPHIL ABSOLUTE COUNT 0.2 tho/cmm (0.0-0.7); HCT-HEMATOCRIT 40.2 % (36.0-53.5); HGB-HEMOGLOBIN 12.7 gm/dl (13.5-17.0); IMMATURE GRANULOCYTES ABSOLUTE 0.01 tho/cmm (0-0.03); IMMATURE GRANULOCYTES PERCENT 0.1 % (0-0.3); LYMPH % 21.1 % (20-45); LYMPH ABSOLUTE COUNT 1.6 tho/cmm (0.8-4.5); MCH (MEAN CORPUSCULAR HGB) 29.6 pg (28.0-32.0); MCHC MEAN CORPUSCULAR HGB CONC 31.6 % (32.0-36.0); MCV (MEAN CELL VOLUME) 93.7 fl (82.0-96.0); MEAN PLATELET VOLUME 9.2 cmc (9.4-12.4); MONOCYTE ABSOLUTE COUNT 0.7 tho/cmm (0.0-1.2); NEUTROPHIL ABSOLUTE COUNT 5.1 tho/cmm (1.6-8.0); NEUTROPHIL-AUTOMATED 5.1 tho/cmm (1.6-8.0); NEUTROPHILS % 67.2 % (40-80); PLATELET COUNT 222 tho/cmm (150-450); RED BLOOD COUNT 4.29 mil/cmm (4.40-5.70); RED CELL DISTRIBUTION WIDTH 15.6 % (12.4-16.4); WHITE BLOOD COUNT 7.6 tho/cmm (4.0-10.0)
[2017-03-16 13:07] LABS: ALB/GLOB RATIO 0.5 (0.8-2.0); ALBUMIN 2.8 g/dl (3.5-5.0); ALKALINE PHOSPHATASE 154 U/L (33-138); ALT/SGPT 25 U/L (12-78); ANION GAP 19 mmol/L (0-20); AST/SGOT 25 U/L (10-40); BILIRUBIN,TOTAL 0.4 mg/dl (0.0-1.5); BLOOD UREA NITROGEN 66 mg/dl (6-24); C-REACTIVE PROTEIN 13.8 mg/dl (0-0.9); CALCIUM 8.5 mg/dl (8.5-10.5); CARBON DIOXIDE-VENOUS 31 mmol/L (22-32); CHLORIDE 94 mmol/l (96-110); CREATININE 6.93 mg/dl (0.60-1.30); GLUCOSE 90 mg/dL (70-110); MAGNESIUM 2.4 mg/dl (1.8-2.6); PHOSPHOROUS 6.5 mg/dl (2.5-4.9); POTASSIUM 5.5 mmol/L (3.7-5.1); SODIUM 138 mmol/L (135-145); eGFR VALUE FOR BLACK 9 mL/Min
[2017-03-16 13:50] LABS: PROCALCITONIN 3.06 ng/ml (0.05-0.09)
[2017-03-16 20:39] LABS: ABG CO2 ARTERIAL 29 mmol/L (21-27); ARTERIAL BLD GAS O2 SATURATION 94 % (95-98); ARTERIAL BLOOD GAS PCO2 48 mmHg (32-45); ARTERIAL PO2 80 mmHg (70-100); BICARBONATE 28 mmol/L (21-28); BLOOD GAS BASE EXCESS 2 mM/L (-/+3); PH 7.38 Units (7.35-7.45)
[2017-03-17 05:45] LABS: BASO % 0.6 % (0-2); EOS % 3.5 % (0-7); EOSINOPHIL ABSOLUTE COUNT 0.2 tho/cmm (0.0-0.7); HCT-HEMATOCRIT 37.1 % (36.0-53.5); HGB-HEMOGLOBIN 11.9 gm/dl (13.5-17.0); IMMATURE GRANULOCYTES ABSOLUTE 0.01 tho/cmm (0-0.03); IMMATURE GRANULOCYTES PERCENT 0.2 % (0-0.3); LYMPH % 16.2 % (20-45); LYMPH ABSOLUTE COUNT 1.1 tho/cmm (0.8-4.5); MCH (MEAN CORPUSCULAR HGB) 29.6 pg (28.0-32.0); MCHC MEAN CORPUSCULAR HGB CONC 32.1 % (32.0-36.0); MCV (MEAN CELL VOLUME) 92.3 fl (82.0-96.0); MEAN PLATELET VOLUME 9.3 cmc (9.4-12.4); MONOCYTE ABSOLUTE COUNT 0.8 tho/cmm (0.0-1.2); NEUTROPHIL ABSOLUTE COUNT 4.4 tho/cmm (1.6-8.0); NEUTROPHIL-AUTOMATED 4.4 tho/cmm (1.6-8.0); NEUTROPHILS % 67.5 % (40-80); PLATELET COUNT 226 tho/cmm (150-450); RED BLOOD COUNT 4.02 mil/cmm (4.40-5.70); RED CELL DISTRIBUTION WIDTH 15.6 % (12.4-16.4); WHITE BLOOD COUNT 6.5 tho/cmm (4.0-10.0)
[2017-03-17 05:57] LABS: ANION GAP 20 mmol/L (0-20); BLOOD UREA NITROGEN 82 mg/dl (6-24); CALCIUM 8.5 mg/dl (8.5-10.5); CARBON DIOXIDE-VENOUS 28 mmol/L (22-32); CHLORIDE 96 mmol/l (96-110); CREATININE 7.88 mg/dl (0.60-1.30); GLUCOSE 107 mg/dL (70-110); SODIUM 139 mmol/L (135-145); eGFR VALUE FOR BLACK 8 mL/Min
[2017-03-17 06:16] LABS: TSH-THYROID STIMULATING HORM. 1.72 uIU/ml (0.40-3.80)
--- NOTE | 2017-03-17 21:09 | NUR ---
VIRTUAL CARE NOTE: PT. IN BED, STATES IS STARTING TO HAVE PAIN IN HIS FOOT AND IS HUNGRY, DENIES OTHER NEEDS AT THIS TIME. EDUCATION PROVIDED THAT WE NEED TO CHECK HIS BLOOD SUGAR BEFORE GIVING HIM A SNACK, AND THAT THIS RN WOULD LET THE NURSE KNOW NEED FOR PAIN MEDS. INSTRUCTED TO CALL FOR FUTURE NEEDS. STATES VERBAL UNDERSTANDING.
--- NOTE | 2017-03-18 20:55 | NUR ---
VIRTUAL CARE NOTE: ASSESSMENT DEFERRED. ATTEMPTED TO ROUND SEVERAL TIMES. PT SLEEPING. WILL CONTINUE WITH CHART REVIEW.
[2017-03-19 06:50] LABS: ALBUMIN 2.4 g/dl (3.5-5.0); ANION GAP 20 mmol/L (0-20); BLOOD UREA NITROGEN 61 mg/dl (6-24); CARBON DIOXIDE-VENOUS 24 mmol/L (22-32); CHLORIDE 94 mmol/l (96-110); CREATININE 7.04 mg/dl (0.60-1.30); GLUCOSE 93 mg/dL (70-110); PHOSPHOROUS 6.8 mg/dl (2.5-4.9); POTASSIUM 5.5 mmol/L (3.7-5.1); SODIUM 132 mmol/L (135-145); eGFR VALUE FOR BLACK 9 mL/Min
[2017-03-19 06:55] LABS: BASO % 1.2 % (0-2); BASO ABSOLUTE COUNT 0.1 tho/cmm (0.0-0.2); EOSINOPHIL ABSOLUTE COUNT 0.6 tho/cmm (0.0-0.7); HCT-HEMATOCRIT 34.2 % (36.0-53.5); IMMATURE GRANULOCYTES ABSOLUTE 0.01 tho/cmm (0-0.03); IMMATURE GRANULOCYTES PERCENT 0.1 % (0-0.3); LYMPH % 20.4 % (20-45); LYMPH ABSOLUTE COUNT 1.4 tho/cmm (0.8-4.5); MCH (MEAN CORPUSCULAR HGB) 29.2 pg (28.0-32.0); MCHC MEAN CORPUSCULAR HGB CONC 32.2 % (32.0-36.0); MCV (MEAN CELL VOLUME) 90.7 fl (82.0-96.0); MEAN PLATELET VOLUME 9.3 cmc (9.4-12.4); MONO % 10.9 % (0-12); MONOCYTE ABSOLUTE COUNT 0.8 tho/cmm (0.0-1.2); NEUTROPHIL ABSOLUTE COUNT 4.1 tho/cmm (1.6-8.0); NEUTROPHIL-AUTOMATED 4.1 tho/cmm (1.6-8.0); NEUTROPHILS % 59.4 % (40-80); PLATELET COUNT 194 tho/cmm (150-450); RED BLOOD COUNT 3.77 mil/cmm (4.40-5.70); RED CELL DISTRIBUTION WIDTH 15.3 % (12.4-16.4); WHITE BLOOD COUNT 6.9 tho/cmm (4.0-10.0)
--- NOTE | 2017-03-19 20:29 | NUR ---
VIRTUAL CARE NOTE: PT. IN BED, STATES IS DOING OKAY. IS EATING SOME FOOD AT THIS TIME. PT. IS CALM. PT'S ASKED IF HE KNEW WHAT THE YELLOW BRACELET WAS FOR ON HIS WRIST. STATES "NO FALL". PRAISE GIVEN TO ALWAYS CALL BEFORE TRYING TO GET OUT OF BED. INSTRUCTED ALSO TO CALL FOR FURTHER NEEDS. STATES VERBAL A GREEMENT.
[2017-06-03] MEDS ORDERED: NOVOLOG100 UNITS/ SC ×2 (08:24)
[2017-06-03] MEDS ORDERED: HYDRALAZINE HCL25 M1 PO (08:31)
[2017-06-10] MEDS ORDERED: MUCINEX600 M1 PO (10:57)
== END 2017-03-20 13:50 | DRG 91 ==
LOC: EDMED 11:08 → EMR2 16:14 → 5WD 18:00
PROVIDERS: Emergency Medicine; Internal Medicine Nephrology; Registered Nurse; ADMIT Family Medicine
PROC: 5A1D60Z (ICD-10-PCS; principal; 2017-03-16)
DX: G92 Toxic encephalopathy (principal); N18.6 End stage renal disease; E11.22 Type 2 diabetes mellitus with diabetic chronic kidney disease; N25.81 Secondary hyperparathyroidism of renal origin; I12.0 Hypertensive chronic kidney disease with stage 5 chronic kidney disease or end stage renal disease; L97.419 Non-pressure chronic ulcer of right heel and midfoot with unspecified severity; R44.3 Hallucinations, unspecified; E11.42 Type 2 diabetes mellitus with diabetic polyneuropathy; Z99.2 Dependence on renal dialysis; E11.51 Type 2 diabetes mellitus with diabetic peripheral angiopathy without gangrene; E11.621 Type 2 diabetes mellitus with foot ulcer; Z89.512 Acquired absence of left leg below knee; G47.33 Obstructive sleep apnea (adult) (pediatric); Z85.46 Personal history of malignant neoplasm of prostate; G89.4 Chronic pain syndrome; Z79.82 Long term (current) use of aspirin; D63.1 Anemia in chronic kidney disease; E11.649 Type 2 diabetes mellitus with hypoglycemia without coma; T42.8X5A Adverse effect of antiparkinsonism drugs and other central muscle-tone depressants, initial encounter
CPT/HCPCS: J0610; J1644; J1650; J1815; J2270; J2543; J3370

== ENCOUNTER 2017-03-31 21:46 | Inpatient (IN) | payer MEDICARE, OTHER ==
[~2017-03-31 21:46] MED LIST changes: +ACIDOPHILUS1 EAC3 PO; +ANTIFUNGAL CREA14 G1 TP; +ASPIRIN81 M1 PO; +GLUCAGON EMERGEN1 MG IM/SC; +HEMODIALYSIS; +MILK OF MAGNESIA PO; +MULTIVITAMINS1 EAC5 PO; +ONDANSETRON ODT4 M1 SL; +POLYETHYLENE GL17 G1 PO; +RANITIDINE HCL150 M2 PO; +STOOL SOFTENER100 M3 PO; +TRIPLE ANTIBIO1 EACH TP; +VENELEX OINTMEN60 GM TP; +[UNRECOGNIZED DRUG - OTHER]
[2017-03-31 22:36] LABS: BASO % 0.2 % (0-2); BASO ABSOLUTE COUNT 0.1 tho/cmm (0.0-0.2); EOS % 0.8 % (0-7); EOSINOPHIL ABSOLUTE COUNT 0.2 tho/cmm (0.0-0.7); HCT-HEMATOCRIT 35.7 % (36.0-53.5); HGB-HEMOGLOBIN 11.4 gm/dl (13.5-17.0); IMMATURE GRANULOCYTES ABSOLUTE 0.07 tho/cmm (0-0.03); IMMATURE GRANULOCYTES PERCENT 0.3 % (0-0.3); LYMPH % 3.2 % (20-45); LYMPH ABSOLUTE COUNT 0.7 tho/cmm (0.8-4.5); MCH (MEAN CORPUSCULAR HGB) 29.4 pg (28.0-32.0); MCHC MEAN CORPUSCULAR HGB CONC 31.9 % (32.0-36.0); MEAN PLATELET VOLUME 8.9 cmc (9.4-12.4); MONO % 5.3 % (0-12); MONOCYTE ABSOLUTE COUNT 1.1 tho/cmm (0.0-1.2); NEUTROPHIL ABSOLUTE COUNT 18.3 tho/cmm (1.6-8.0); NEUTROPHIL-AUTOMATED 18.3 tho/cmm (1.6-8.0); NEUTROPHILS % 90.2 % (40-80); PLATELET COUNT 270 tho/cmm (150-450); RED BLOOD COUNT 3.88 mil/cmm (4.40-5.70); WHITE BLOOD COUNT 20.3 tho/cmm (4.0-10.0)
[2017-03-31 22:47] LABS: ALB/GLOB RATIO 0.5 (0.8-2.0); ALBUMIN 2.6 g/dl (3.5-5.0); ALKALINE PHOSPHATASE 156 U/L (33-138); ALT/SGPT 20 U/L (12-78); ANION GAP 11 mmol/L (0-20); AST/SGOT 14 U/L (10-40); BILIRUBIN,TOTAL 0.4 mg/dl (0.0-1.5); BLOOD UREA NITROGEN 33 mg/dl (6-24); CALCIUM 8.1 mg/dl (8.5-10.5); CARBON DIOXIDE-VENOUS 36 mmol/L (22-32); CHLORIDE 96 mmol/l (96-110); GLUCOSE 125 mg/dL (70-110); POTASSIUM 3.5 mmol/L (3.7-5.1); SODIUM 139 mmol/L (135-145); eGFR VALUE FOR BLACK 15 mL/Min
[2017-04-01] MEDS ORDERED: PROSTAT PO (00:08)
[2017-04-01 04:25] LABS: BASO % 0.6 % (0-2); BASO ABSOLUTE COUNT 0.1 tho/cmm (0.0-0.2); EOSINOPHIL ABSOLUTE COUNT 0.2 tho/cmm (0.0-0.7); HCT-HEMATOCRIT 35.3 % (36.0-53.5); HGB-HEMOGLOBIN 11.4 gm/dl (13.5-17.0); IMMATURE GRANULOCYTES ABSOLUTE 0.22 tho/cmm (0-0.03); IMMATURE GRANULOCYTES PERCENT 1.5 % (0-0.3); LYMPH % 10.8 % (20-45); LYMPH ABSOLUTE COUNT 1.6 tho/cmm (0.8-4.5); MCH (MEAN CORPUSCULAR HGB) 29.2 pg (28.0-32.0); MCHC MEAN CORPUSCULAR HGB CONC 32.3 % (32.0-36.0); MCV (MEAN CELL VOLUME) 90.5 fl (82.0-96.0); MEAN PLATELET VOLUME 9.3 cmc (9.4-12.4); MONO % 6.7 % (0-12); NEUTROPHIL ABSOLUTE COUNT 11.9 tho/cmm (1.6-8.0); NEUTROPHIL-AUTOMATED 11.9 tho/cmm (1.6-8.0); NEUTROPHILS % 79.4 % (40-80); PLATELET COUNT 261 tho/cmm (150-450)
[2017-04-01 04:51] LABS: BLOOD UREA NITROGEN 43 mg/dl (6-24); CALCIUM 7.7 mg/dl (8.5-10.5); CARBON DIOXIDE-VENOUS 28 mmol/L (22-32); CHLORIDE 97 mmol/l (96-110); SODIUM 137 mmol/L (135-145); eGFR VALUE FOR BLACK 14 mL/Min
[2017-04-01 05:09] LABS: ANION GAP 17 mmol/L (0-20); GLUCOSE 218 mg/dL (70-110); POTASSIUM 4.7 mmol/L (3.7-5.1)
[2017-04-02 06:50] LABS: ANION GAP 15 mmol/L (0-20); BLOOD UREA NITROGEN 61 mg/dl (6-24); CALCIUM 8.3 mg/dl (8.5-10.5); CARBON DIOXIDE-VENOUS 29 mmol/L (22-32); CHLORIDE 95 mmol/l (96-110); GLUCOSE 127 mg/dL (70-110); MAGNESIUM 2.2 mg/dl (1.8-2.6); PHOSPHOROUS 4.8 mg/dl (2.5-4.9); POTASSIUM 4.7 mmol/L (3.7-5.1); SODIUM 134 mmol/L (135-145); eGFR VALUE FOR BLACK 9 mL/Min
[2017-04-02 06:51] LABS: CREATININE 6.72 mg/dl (0.60-1.30)
[2017-04-02 06:54] LABS: BASO % 0.5 % (0-2); BASO ABSOLUTE COUNT 0.1 tho/cmm (0.0-0.2); EOSINOPHIL ABSOLUTE COUNT 0.5 tho/cmm (0.0-0.7); HCT-HEMATOCRIT 32.2 % (36.0-53.5); HGB-HEMOGLOBIN 10.3 gm/dl (13.5-17.0); IMMATURE GRANULOCYTES ABSOLUTE 0.03 tho/cmm (0-0.03); IMMATURE GRANULOCYTES PERCENT 0.3 % (0-0.3); LYMPH % 10.8 % (20-45); LYMPH ABSOLUTE COUNT 1.1 tho/cmm (0.8-4.5); MCH (MEAN CORPUSCULAR HGB) 28.8 pg (28.0-32.0); MCV (MEAN CELL VOLUME) 89.9 fl (82.0-96.0); MONO % 7.1 % (0-12); MONOCYTE ABSOLUTE COUNT 0.7 tho/cmm (0.0-1.2); NEUTROPHIL ABSOLUTE COUNT 7.8 tho/cmm (1.6-8.0); NEUTROPHIL-AUTOMATED 7.8 tho/cmm (1.6-8.0); NEUTROPHILS % 76.3 % (40-80); PLATELET COUNT 256 tho/cmm (150-450); RED BLOOD COUNT 3.58 mil/cmm (4.40-5.70); RED CELL DISTRIBUTION WIDTH 14.9 % (12.4-16.4); WHITE BLOOD COUNT 10.2 tho/cmm (4.0-10.0)
[2017-04-03] MEDS ORDERED: LEVEMIR100 UNITS/ SC (10:17)
[2017-04-03] MEDS ORDERED: NORCO 5-325 TA1 EACH PO (10:21)
[2017-06-03] MEDS ORDERED: NOVOLOG100 UNITS/ SC ×2 (08:24)
[2017-06-03] MEDS ORDERED: HYDRALAZINE HCL25 M1 PO (08:31)
[2017-06-10] MEDS ORDERED: MUCINEX600 M1 PO (10:57)
== END 2017-04-03 11:05 | DRG 623 ==
LOC: EDMED 21:46 → EMR2 04-01 00:31 → 5WE 04-01 01:46
PROVIDERS: Emergency Medicine; Internal Medicine Nephrology; Registered Nurse; ADMIT Family Medicine
PROC: 0JBQ0ZZ Excision of Right Foot Subcutaneous Tissue and Fascia, Open Approach (ICD-10-PCS; principal; 2017-04-01)
PROC: 5A1D00Z (ICD-10-PCS; 2017-04-02)
DX: E11.649 Type 2 diabetes mellitus with hypoglycemia without coma (principal); R65.10 Systemic inflammatory response syndrome (SIRS) of non-infectious origin without acute organ dysfunction; L97.919 Non-pressure chronic ulcer of unspecified part of right lower leg with unspecified severity; I12.0 Hypertensive chronic kidney disease with stage 5 chronic kidney disease or end stage renal disease; E11.22 Type 2 diabetes mellitus with diabetic chronic kidney disease; N18.6 End stage renal disease; E11.42 Type 2 diabetes mellitus with diabetic polyneuropathy; G54.6 Phantom limb syndrome with pain; E87.6 Hypokalemia; G89.29 Other chronic pain; D63.1 Anemia in chronic kidney disease; Z99.2 Dependence on renal dialysis; Z89.512 Acquired absence of left leg below knee; Z79.4 Long term (current) use of insulin; Z79.899 Other long term (current) drug therapy; T38.3X5A Adverse effect of insulin and oral hypoglycemic [antidiabetic] drugs, initial encounter
CPT/HCPCS: J0885; J1650; J1815; J2543; J7050

== ENCOUNTER 2017-04-08 08:55 | Inpatient (IN) | payer MEDICARE, MEDICAID ==
[2017-04-08 15:21] LABS: BASO % 0.3 % (0-2); EOS % 3.6 % (0-7); EOSINOPHIL ABSOLUTE COUNT 0.4 tho/cmm (0.0-0.7); HCT-HEMATOCRIT 32.8 % (36.0-53.5); HGB-HEMOGLOBIN 10.4 gm/dl (13.5-17.0); IMMATURE GRANULOCYTES ABSOLUTE 0.03 tho/cmm (0-0.03); IMMATURE GRANULOCYTES PERCENT 0.3 % (0-0.3); INR 1.1 INR (0.9-1.1); LYMPH % 13.2 % (20-45); LYMPH ABSOLUTE COUNT 1.3 tho/cmm (0.8-4.5); MCH (MEAN CORPUSCULAR HGB) 28.8 pg (28.0-32.0); MCHC MEAN CORPUSCULAR HGB CONC 31.7 % (32.0-36.0); MCV (MEAN CELL VOLUME) 90.9 fl (82.0-96.0); MONO % 8.6 % (0-12); MONOCYTE ABSOLUTE COUNT 0.8 tho/cmm (0.0-1.2); NEUTROPHIL ABSOLUTE COUNT 7.1 tho/cmm (1.6-8.0); NEUTROPHIL-AUTOMATED 7.1 tho/cmm (1.6-8.0); PLATELET COUNT 290 tho/cmm (150-450); PROTHROMBIN TIME 12.5 SECONDS (9.0-13.6); RED BLOOD COUNT 3.61 mil/cmm (4.40-5.70); RED CELL DISTRIBUTION WIDTH 15.2 % (12.4-16.4); WHITE BLOOD COUNT 9.6 tho/cmm (4.0-10.0)
[2017-04-08 15:30] LABS: ANION GAP 14 mmol/L (0-20); BLOOD UREA NITROGEN 48 mg/dl (6-24); CALCIUM 8.2 mg/dl (8.5-10.5); CARBON DIOXIDE-VENOUS 32 mmol/L (22-32); CHLORIDE 93 mmol/l (96-110); CREATININE 5.54 mg/dl (0.60-1.30); GLUCOSE 251 mg/dL (70-110); POTASSIUM 4.7 mmol/L (3.7-5.1); SODIUM 134 mmol/L (135-145); eGFR VALUE FOR BLACK 12 mL/Min
[2017-04-10 04:46] LABS: BASO % 0.4 % (0-2); EOS % 0.8 % (0-7); EOSINOPHIL ABSOLUTE COUNT 0.1 tho/cmm (0.0-0.7); HCT-HEMATOCRIT 28.1 % (36.0-53.5); HGB-HEMOGLOBIN 8.8 gm/dl (13.5-17.0); IMMATURE GRANULOCYTES ABSOLUTE 0.03 tho/cmm (0-0.03); IMMATURE GRANULOCYTES PERCENT 0.3 % (0-0.3); LYMPH % 12.1 % (20-45); LYMPH ABSOLUTE COUNT 1.1 tho/cmm (0.8-4.5); MCH (MEAN CORPUSCULAR HGB) 28.5 pg (28.0-32.0); MCHC MEAN CORPUSCULAR HGB CONC 31.3 % (32.0-36.0); MCV (MEAN CELL VOLUME) 90.9 fl (82.0-96.0); MEAN PLATELET VOLUME 8.8 cmc (9.4-12.4); MONO % 7.5 % (0-12); MONOCYTE ABSOLUTE COUNT 0.7 tho/cmm (0.0-1.2); NEUTROPHIL ABSOLUTE COUNT 7.5 tho/cmm (1.6-8.0); NEUTROPHIL-AUTOMATED 7.5 tho/cmm (1.6-8.0); NEUTROPHILS % 78.9 % (40-80); PLATELET COUNT 247 tho/cmm (150-450); RED BLOOD COUNT 3.09 mil/cmm (4.40-5.70); RED CELL DISTRIBUTION WIDTH 15.3 % (12.4-16.4); WHITE BLOOD COUNT 9.5 tho/cmm (4.0-10.0)
[2017-04-10 04:53] LABS: ANION GAP 15 mmol/L (0-20); BLOOD UREA NITROGEN 32 mg/dl (6-24); CALCIUM 8.3 mg/dl (8.5-10.5); CARBON DIOXIDE-VENOUS 27 mmol/L (22-32); CHLORIDE 97 mmol/l (96-110); CREATININE 4.76 mg/dl (0.60-1.30); GLUCOSE 207 mg/dL (70-110); POTASSIUM 4.4 mmol/L (3.7-5.1); SODIUM 135 mmol/L (135-145); eGFR VALUE FOR BLACK 14 mL/Min
[2017-04-12 05:17] LABS: BASO % 0.4 % (0-2); EOSINOPHIL ABSOLUTE COUNT 0.6 tho/cmm (0.0-0.7); HGB-HEMOGLOBIN 7.5 gm/dl (13.5-17.0); IMMATURE GRANULOCYTES ABSOLUTE 0.01 tho/cmm (0-0.03); IMMATURE GRANULOCYTES PERCENT 0.1 % (0-0.3); LYMPH % 13.5 % (20-45); LYMPH ABSOLUTE COUNT 1.1 tho/cmm (0.8-4.5); MCH (MEAN CORPUSCULAR HGB) 28.8 pg (28.0-32.0); MCHC MEAN CORPUSCULAR HGB CONC 31.8 % (32.0-36.0); MCV (MEAN CELL VOLUME) 90.8 fl (82.0-96.0); MEAN PLATELET VOLUME 8.6 cmc (9.4-12.4); MONO % 7.6 % (0-12); MONOCYTE ABSOLUTE COUNT 0.6 tho/cmm (0.0-1.2); NEUTROPHILS % 71.4 % (40-80); PLATELET COUNT 249 tho/cmm (150-450); RED CELL DISTRIBUTION WIDTH 15.6 % (12.4-16.4); WHITE BLOOD COUNT 8.4 tho/cmm (4.0-10.0)
[2017-04-12 05:28] LABS: ANION GAP 19 mmol/L (0-20); BLOOD UREA NITROGEN 58 mg/dl (6-24); CALCIUM 7.8 mg/dl (8.5-10.5); CARBON DIOXIDE-VENOUS 25 mmol/L (22-32); CHLORIDE 95 mmol/l (96-110); GLUCOSE 118 mg/dL (70-110); HCT-HEMATOCRIT 23.6 % (36.0-53.5); MAGNESIUM 1.8 mg/dl (1.8-2.6); PHOSPHOROUS 6.2 mg/dl (2.5-4.9); POTASSIUM 5.4 mmol/L (3.7-5.1); SODIUM 134 mmol/L (135-145); eGFR VALUE FOR BLACK 8 mL/Min
[2017-06-03] MEDS ORDERED: NOVOLOG100 UNITS/ SC ×2 (08:24)
[2017-06-03] MEDS ORDERED: HYDRALAZINE HCL25 M1 PO (08:31)
[2017-06-10] MEDS ORDERED: MUCINEX600 M1 PO (10:57)
== END 2017-04-13 13:05 | disposition other institution (70) | DRG 239 ==
LOC: WCC 08:55 → BURN 10:46 → ORW 04-09 14:01 → BURN 04-09 16:29
PROVIDERS: Internal Medicine Nephrology; ADMIT Surgery
PROC: 0Y6F0ZZ Detachment at Right Knee Region, Open Approach (ICD-10-PCS; principal; 2017-04-09)
PROC: 06HN33Z Insertion of Infusion Device into Left Femoral Vein, Percutaneous Approach (ICD-10-PCS; 2017-04-09)
PROC: 5A1D60Z (ICD-10-PCS; 2017-04-09)
DX: E11.52 Type 2 diabetes mellitus with diabetic peripheral angiopathy with gangrene (principal); N18.6 End stage renal disease; E11.22 Type 2 diabetes mellitus with diabetic chronic kidney disease; I12.0 Hypertensive chronic kidney disease with stage 5 chronic kidney disease or end stage renal disease; E11.42 Type 2 diabetes mellitus with diabetic polyneuropathy; F11.20 Opioid dependence, uncomplicated; G89.29 Other chronic pain; F32.9 Major depressive disorder, single episode, unspecified; Z89.612 Acquired absence of left leg above knee; Z79.4 Long term (current) use of insulin; Z99.2 Dependence on renal dialysis; G47.33 Obstructive sleep apnea (adult) (pediatric); Z85.46 Personal history of malignant neoplasm of prostate; E21.3 Hyperparathyroidism, unspecified; Z88.8 Allergy status to other drugs, medicaments and biological substances; E11.621 Type 2 diabetes mellitus with foot ulcer; L97.519 Non-pressure chronic ulcer of other part of right foot with unspecified severity; D63.1 Anemia in chronic kidney disease; Z87.898 Personal history of other specified conditions
CPT/HCPCS: J0696; J0885; J1815; J2405; J2543; J3010; J3370; J7030; J7050